=== PATIENT | male | born 2000 | race Caucasian/White ===

== ENCOUNTER 2022-03-20 23:21 | Emergency (ER) | payer OTHER, SELFPAY ==
[2022-03-20 23:23] VITALS: BP 156/95; PULSE 127; RESP 16; TEMP 36.8; O2SAT 98; BMI 30.9
--- NOTE | 2022-03-20 23:43 | RAD_ITS ---
EXAM: XR CHEST, 1 VIEW CLINICAL INDICATION: Trauma TECHNIQUE: Frontal view of the chest. This report was created using [employer] report generation technology. COMPARISON: Left clavicle radiographs of this date. FINDINGS: LUNGS AND PLEURAL SPACES: Unremarkable. No consolidation or edema. No pneumothorax. No effusion. HEART: Unremarkable. Cardiac silhouette not enlarged. Normal pulmonary vasculature. MEDIASTINUM: Central airways and mediastinal contour are unremarkable. No mediastinal widening. BONES/JOINTS: No acute fracture identified. Adjacent to the distal left clavicle is a 5 mm corticated calcification, consistent with old trauma. SOFT TISSUES: Unremarkable. RAD/Chest 1 View (Portable) IMPRESSION: No radiographic evidence of acute cardiopulmonary disease. Electronically Signed: Vitor Allen MD at 1:13 EST ,
--- NOTE | 2022-03-20 23:43 | EKG12_ITS ---
Test Reason : DYSRHYTHMIA Blood Pressure : / mmHG Vent. Rate : 112 BPM Atrial Rate : 112 BPM P-R Int : 150 ms QRS Dur : 118 ms QT Int : 340 ms P-R-T Axes : 067 072 015 degrees QTc Int : 464 ms Sinus tachycardia Otherwise normal ECG Confirmed by EM FERRER, BIRDIE ([id number]), pictures editor VONNIE BAUTISTA ([id number]) on 03/23/2022 1:03:56 PM Referred By: SETH Confirmed By:BIRDIE STRICKLAND MD
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
--- NOTE | 2022-03-20 23:50 | ED.RN ---
TWO RED TUBES FROM [facility] WERE USED FOR LEGAL DRAW OF BLOOD BECAUSE THE TUBES PROVIDED BY PD WERE AND UNSUABLE. RED TUBES TURNED OVER TO [place], OFFICER DORIAN.
[2022-03-20 23:56] LABS: Absolute Lymphocyte Count 2.74 X10^3/uL (0.83-4.51); Absolute Neutrophil Count 2.5 X10^3/uL (2.0-7.7); Basophil# 0.06 X10^3/uL; Eosinophil# 0.29 X10^3/uL; Eosinophils% 4.7 % (0-5); Hematocrit 48.3 % (40-54); Hemoglobin 16.7 g/dL (13.0-16.5); Lymphocyte # 2.74 X10^3/ul (0.83-4.51); Lymphocyte % 44.3 % (19-41); Mean Corp Hgb Conc 34.6 g/dL (32-36); Mean Corpuscular Hgb 29.9 pg (27.0-32.0); Mean Corpuscular Volume 86.4 fL (80-94); Mean Platelet Vol. 10.2 fl (6.2-12.0); Monocyte# 0.55 X10^3/uL; Monocyte% 8.9 % (0-10); NRBC Flagged by Analyzer 0 % (0-5); Neutrophil # 2.53 X10^3/uL (2.7-7.7); Neutrophil % 40.8 % (47-70); Platelet Count 202 K/mm3 (150-450); RBC Distribution Width CV 12.9 % (11.6-14.6); RBC Distribution Width SD 40.3 fl (35.1-43.9); Red Blood Count 5.59 M/mm3 (4.6-6.2); White Blood Count 6.2 K/mm3 (4.4-11.0)
[2022-03-21 00:18] LABS: ALB/GLOB Ratio 1.2 RATIO (0.9-2.4); AST(SGOT) 30 U/L (15-37); Alanine Aminotransfer ALT/SGPT 42 U/L (16-61); Albumin, Serum 4.5 g/dL (3.2-5.0); Alkaline Phosphatase 49 U/L (45-117); Anion Gap 9 (5-15); BUN 20 mg/dL (7-18); BUN/Creat Ratio 16.3 RATIO (10-20); Calcium,Total 9.1 mg/dL (8.5-10.1); Chloride 107 mmol/L (98-107); Creatinine, Serum 1.23 mg/dL (0.70-1.30); EST Glomerular Filtration Rate 77 mL/min (>60); Est Glom Filt Rate - Afr Amer 94 mL/min (>60); Estimated Creatinine Clearance 99.48 ml/min; Globulin 3.9 g/dL (2.2-4.2); Glucose 142 mg/dL (74-106); Potassium 3.3 mmol/L (3.5-5.1); Protein, Total 8.4 g/dL (6.4-8.2); Sodium Level 140 mmol/L (136-145)
[2022-03-21 00:36] VITALS: O2SAT 99
--- NOTE | 2022-03-21 00:57 | RAD_ITS ---
EXAM: XR LEFT CLAVICLE COMPLETE, 2 OR MORE VIEWS CLINICAL INDICATION: Trauma TECHNIQUE: Frontal and lordotic views of the left clavicle. This report was created using [employer] report generation technology. COMPARISON: Portable chest radiograph of this date. 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 No acute fracture is identified. Minimal degenerative spurring arises from the distal left clavicle. There is no AC joint widening or shoulder dislocation. Left upper ribs are intact. No sclerotic or destructive changes observed. SOFT TISSUES: Unremarkable. No soft tissue swelling or gas. No radiopaque foreign body. OTHER: The visualized left upper lung is clear. RAD/Clavicle IMPRESSION: Findings of old trauma to the distal left clavicle. No acute fracture or AC joint widening. Electronically Signed: Vitor Allen MD at 1:51 EST ,
[2022-03-21] MEDS: 0.9% Normal Saline 1,000 ML 999 ML IV (01:00)
--- NOTE | 2022-03-21 01:43 | RAD_ITS ---
EXAM: XR RIGHT ANKLE COMPLETE, 3 OR MORE VIEWS CLINICAL INDICATION: Trauma TECHNIQUE: Frontal, lateral and oblique views of the right ankle. This report was created using [employer] report generation technology. COMPARISON: None. FINDINGS: BONES/JOINTS: No acute fracture. No dislocation. Normal alignment. Preservation of the joint space. Along the lateral aspect of the distal tibia shaft is an eccentric ovoid focus of subcortical sclerosis, with slight central lucency, measuring 31 mm in length by 8 mm in transverse diameter, consistent with a partially ossified fibrous cortical defect, benign. There is no overlying cortical expansion, destruction or soft tissue mass. SOFT TISSUES: Unremarkable. No soft tissue swelling or gas. No radiopaque foreign body. RAD/Ankle min 3 Views IMPRESSION: Benign finding of the distal tibia as noted above. No acute fracture or dislocation. Electronically Signed: Vitor Allen MD at 2:23 EST ,
[2022-03-21 03:34] VITALS: BP 121/77; PULSE 89; RESP 16; O2SAT 97
--- NOTE | 2022-03-21 23:45 | CT_ITS ---
EXAM: CT HEAD WITHOUT INTRAVENOUS CONTRAST CLINICAL INDICATION: Trauma TECHNIQUE: Multiple axial images were obtained of the head without intravenous contrast. This CT exam was performed using one or more of the following dose reduction techniques: automated exposure control, adjustment of the mA and/or kV according to patient size, and/or use of iterative reconstruction technique. This report was created using [employer] report generation technology. RADIATION DOSE: Total DLP: 829.85 mGy-cm. COMPARISON: None. FINDINGS: BRAIN AND EXTRA-AXIAL SPACES: Unremarkable. No intra- or extra-axial hemorrhage. No evidence of acute infarct. No intracranial mass or mass effect. There is preservation of the iverson/white matter interface. Posterior fossa structures are unremarkable. Ventricles are appropriate for age. No hydrocephalus. Basal cisterns are patent. BONES/JOINTS: No linear or depressed skull fracture. No discrete lytic or blastic abnormalities. SOFT TISSUES: No scalp hematoma. SINUSES: Unremarkable as visualized. Clear. MASTOID AIR CELLS: Unremarkable. Clear. ORBITS: Visualized globes, extraocular muscles, optic nerves and retrobulbar fat appear unremarkable. CT/Brain/Head without Contrast IMPRESSION: No acute findings in the head/brain. Electronically Signed: Vitor Allen MD at 0:45 EST ,
== END 2022-03-21 03:34 | disposition home or self-care (01) ==
PROVIDERS: Emergency Provider Emergency Medicine; Visit Provider Emergency Medicine
DX: S40.012A Contusion of left shoulder, initial encounter (principal); F10.129 Alcohol abuse with intoxication, unspecified; R04.0 Epistaxis; S96.911A Strain of unspecified muscle and tendon at ankle and foot level, right foot, initial encounter; F17.200 Nicotine dependence, unspecified, uncomplicated; V43.52XA Car driver injured in collision with other type car in traffic accident, initial encounter
CPT/HCPCS: 70450; 71045; 73000; 73610; 80053; 82077; 85025; 93005; 96360; 96361; 99285; A4216